=== PATIENT | male | born 1970 | race Caucasian/White ===

== ENCOUNTER 2020-11-10 09:55 | Day surgery (SDC) | payer OTHER ==
[~2020-11-10 09:55] MED LIST: CEFAZOLIN 2 GM/D5W RTU 2 GM/50 ML RTUPB IV PRN; DEXAMETHASONE SOD PHOS INJ 10 MG/1 ML VIAL ONE; FAMOTIDINE INJ/PF 20 MG/2 ML SDV IV ONE; FENTANYL CITRATE INJ/PF 100 MCG/2 ML AMPUL ONE; GLYCOPYRROLATE INJ 0.4 MG/2 ML VIAL ONE; LIDOCAINE 2% INJ-PF (100 MG/5 ML) SYRINGE ONE; MIDAZOLAM 2 MG/2 ML INJ ONE; MORPHINE SULFATE 10 MG/ML INJ ONE; ONDANSETRON HCL INJ/PF 4 MG/2 ML SDV ONE; PROPOFOL INJ 200 MG/20 ML VIAL IV ONE; SUCCINYLCHOLINE CHLORIDE INJ 200 MG/10 ML VIAL ONE
[2020-11-10] MEDS ORDERED: OXYMETAZOLINE HCL 0.05% NASAL SPRAY 15 ML BOTTLE ONE (10:38)
[2020-11-10] MEDS ORDERED: COCAINE HCL 4% TOPICAL SOLN 4 ML ONE (10:38)
[2020-11-10] MEDS: LIDOCAINE 2%/EPINEPHRINE INJ 1.7 ML CARTRIDGE ONE ×2 (11:21→11:55)
[2020-11-10] MEDS ORDERED: EPHEDRINE SULFATE INJ 50 MG/1 ML AMPULE ONE (11:52)
[2020-11-10] MEDS ORDERED: BACITRACIN ZINC OINTMENT 15 GM ONE (11:56)
--- NOTE | 2020-11-10 12:32 | Operative Report ---
Operative Report-[facility] Operative Report: Date: 10 November 2020 History: 49-year-old male presents with a history of nasal dyspnea. Patient had a previous septoplasty. Physical exam revealed a deviated nasal septum, bilateral nasal vestibular stenosis and inferior turbinate hypertrophy. Presents today for a revision septoplasty, repair nasal vestibular stenosis and turbinate reduction Pre-operative diagnosis: 1. Deviated nasal septum 2. Inferior turbinate hypertrophy, bilateral 3. Bilateral nasal vestibular stenosis Post operative diagnosis: same as above. Procedure: 1. Revision nasal septoplasty [CPT: 64349] 2. Inferior turbinate reduction, right side [CPT: 28125] 3 . Inferior turbinate reduction, left side [CPT: 47877] 4. Repair nasal vestibular stenosis, right side (CPT: 04442) 5. Repair nasal vestibular stenosis, left side (CPT: 86005) Surgeon: Bean Ramos MD, [facility], [facility] Anesthia: WALTER Description of the procedure: After receiving informed consent, the patient was brought to the operating room and placed supine on the operating table. After successful induction and intubation by anesthesia, cottonoids soaked with 4% cocaine replaced into each nasal cavity for approximately five minutes. They were removed andthe septum along with the inferior turbinate were injected with 2% Xylocaine with 1:100,000 epinephrine. The cottonoids were replaced. The patient was then prepped and draped in a sterile fashion. The cottonoids where then removed. A number 15 blade was used to make a latoya transfixtion incision on the left side. Next, using a Parada and then a Carola elevator, a mucoperichondrial flap was elevated to the osteocartilaginous junction. Previous surgery had removed most of the perpendicular plate of the ethmoid. The dissection of this flap was difficult secondary to fibrosis from the previous septoplasty. A septal deflection was noted superiorly, anterior and posterior to the osteocartilaginous junction. Maxton-Valentin's were used to remove this deflection. Dissection continued posteriorly and a mucoperiosteal flap was elevated on both sides of a remnant vomer ethmoid spur. This was removed using Regis-Sarmiento. The septum was viewed with the flaps in place and found to be relatively straight. The middle turbinates were visible on both sides. The latoya transfixion incision was closed using 4-0 chromic and a 4-0 plain gut whip stitch was used to secure the septal flaps. Attention was then directed to the nasal valve area on the right, where the [employer] nasal airway remodeling system was used to repair the nasal vestibular stenosis. The handpiece was placed superiorly at the caudal margin of the upper lateral cartilage and the device was activated. This was repeated 2 more times marching inferiorly towards the piriform aperture. A similar procedure was done on the left. Attention was then directed to the inferior turbinates. Inferior turbinate reduction was performed using the [employer] turbinate system. Destruction of submucosal tissue was performed on the left inferior turbinate and then this turbinate was medialized and lateralized using a Sayer elevator. A similar procedure was performed on the right side. Silicon splints coated with bacitracin were placed into each nasal cavity and secured with a 2-0 prolene. Afrin soaked cottonoids were placed into each nasal cavity and secured to each other in front of the nose. The patient was then given back to anesthesia who successfully extubated them. The patient tolerated the procedure well without any complications. Estimated blood loss: 10 mL Fluids: 1000 mL The patient was transferred to the post anesthesia care unit in stable condition with spontaneous respirations.
== END 2020-11-10 13:32 | disposition home or self-care (01) ==
LOC: SC 09:55
PROVIDERS: ATTEND Otolaryngology
DX: J34.3 Hypertrophy of nasal turbinates (principal); J34.2 Deviated nasal septum; J34.89 Other specified disorders of nose and nasal sinuses; G47.30 Sleep apnea, unspecified; R06.83 Snoring; Z87.891 Personal history of nicotine dependence; Z01.812 Encounter for preprocedural laboratory examination; Z20.828 Contact with and (suspected) exposure to other viral communicable diseases
CPT/HCPCS: 87635; 00160; 30520; 30140; 30465; J2250; J3490 ×4; C9046; J3010; J2001; J0330; J2405; J2704; S0028; J1100; J0690; C9803; 160; J2270

== ENCOUNTER 2020-11-29 18:51 | Emergency (ER) | payer OTHER ==
--- NOTE | 2020-11-29 20:16 | ER Document Report ---
ED Medical Screen (RME) - General Stated Complaint: NOSE BLEED Time Seen by Provider: 11/29/20 20:12 Primary Care Provider: ARTHUR DIGGS MD [Primary Care Provider] - Follow up as needed Notes: HPI: 49-year-old male presenting for nosebleed left nostril. Patient had septoplasty November [address] Tracy. Patient states he had been doing well noticed a small trickle of blood from the left nostril earlier today then this evening had significant bleeding from the left nostril. [place] blood going down the back of his throat as well. Had difficulty stopping the bleeding called EMS who packed the nose with TXA. Still feels some blood in the back of the throat PHYSICAL EXAMINATION: There are some small blood clots in the back posterior pharynx. There is bloody packing in the left nostril which will be left in place until patient is in an ER bed where this can be removed and patient more fully examined I have greeted and performed a rapid initial assessment of this patient. A comprehensive ED assessment and evaluation of the patient, analysis of test results and completion of medical decision making process will be conducted by an additional ED providers. Please note that clinical decision making for this patient was made during the 2019 pandemic of novel coronavirus which caused a significant strain on the healthcare system including at this particular facility. Criteria for admission discharge and level of care decisions as well as treatment decisions have necessarily changed - Related Data Allergies/Adverse Reactions: No Known Allergies Allergy (Verified 11/29/20 20:15) Past Medical History - Past Medical History Cardiac Medical History: Denies: Hx Heart Attack, Hx Hypertension Pulmonary Medical History: Denies: Hx Asthma Neurological Medical History: Denies: Hx Cerebrovascular Accident, Hx Seizures GI Medical History: Denies: Hx Hepatitis, Hx Hiatal Hernia, Hx Ulcer Infectious Medical History: Denies: Hx Hepatitis Past Surgical History: Denies: Hx Open Heart Surgery, Hx Pacemaker Physical Exam - Vital signs Vitals: Temp Pulse Resp BP Pulse Ox 98.1 F 81 20 132/90 H 97 11/29/20 19:03 11/29/20 19:03 11/29/20 19:03 11/29/20 19:03 11/29/20 19:03 Course - Vital Signs Vital signs: Temp Pulse Resp BP Pulse Ox 98.1 F 81 20 132/90 H 97 11/29/20 19:03 11/29/20 19:03 11/29/20 19:03 11/29/20 19:03 11/29/20 19:03 Doctor's Discharge - Discharge Referrals: ARTHUR DIGGS MD [Primary Care Provider] - Follow up as needed
[2020-11-29 20:41] LABS: ABSOLUTE BASOPHILS # (AUTO) 0.1 10^3/uL (0.0-0.2); ABSOLUTE EOSINOPHILS # (AUTO) 0.1 10^3/uL (0.0-0.6); ABSOLUTE LYMPHOCYTES (AUTO) 1.5 10^3/uL (0.5-4.7); ABSOLUTE MONOCYTES (AUTO) 0.6 10^3/uL (0.1-1.4); BASOPHILS % (AUTO) 0.6 % (0-2); EOSINOPHILS % (AUTO) 1.5 % (0-6); HEMATOCRIT 38.6 % (37.9-51.0); HEMOGLOBIN 13.6 g/dL (13.5-17.0); LYMPHOCYTES % (AUTO) 16.4 % (13-45); MEAN CORPUSCULAR HEMOGLOBIN 30.2 pg (27.0-33.4); MEAN CORPUSCULAR HGB CONC 35.1 g/dL (32.0-36.0); MEAN CORPUSCULAR VOLUME 86 fl (80-97); MONOCYTES % (AUTO) 6.6 % (3-13); PLATELET COUNT 276 10^3/uL (150-450); RED BLOOD COUNT 4.49 10^6/uL (4.35-5.55); RED CELL DISTRIBUTION WIDTH 12.6 % (11.5-14.0); SEGMENTED NEUTROPHILS % (AUTO) 74.9 % (42-78); TOTAL CELLS COUNTED % (AUTO) 100 %; WHITE BLOOD COUNT 9.4 10^3/uL (4.0-10.5)
[2020-11-29 20:51] LABS: INTERNATIONAL RATION (INR) 0.87; PROTHROMBIN TIME 12.1 SEC (11.4-15.4)
[2020-11-29 20:59] LABS: ALBUMIN 4.2 g/dL (3.5-5.0); ALKALINE PHOSPHATASE 61 U/L (38-126); ASPARTATE AMINO TRANSFERASE 28 U/L (17-59); BILIRUBIN,DIRECT 0.2 mg/dL (0.0-0.4); BILIRUBIN,TOTAL 0.4 mg/dL (0.2-1.3); BLOOD UREA NITROGEN 15 mg/dL (7-20); CALCIUM 9.8 mg/dL (8.4-10.2); CARBON DIOXIDE 28 mmol/L (22-30); CHLORIDE 108 mmol/L (98-107); GLUCOSE 106 mg/dL (75-110); TOTAL PROTEIN 7.1 g/dL (6.3-8.2)
[2020-11-29 21:00] LABS: POTASSIUM 4.4 mmol/L (3.6-5.0)
[2020-11-29 21:01] LABS: ANION GAP 4 (5-19)
[2020-11-29] MEDS ORDERED: TRANEXAMIC ACID INJ/PF 1,000 MG/10 ML SDV IV STA (23:43)
[2020-11-29] MEDS ORDERED: TRANEXAMIC ACID INJ/PF 1,000 MG/10 ML SDV TOP STA (23:44)
--- NOTE | 2020-11-29 23:45 | ER Document Report ---
ED General - General Chief Complaint: Nose Bleed Stated Complaint: NOSE BLEED Time Seen by Provider: 11/29/20 20:12 Primary Care Provider: ARTHUR DIGGS MD [Primary Care Provider] - Follow up as needed - HPI Context: Chief Complaint: [Nosebleed] [This is a 49-year-old male who presents to the emergency department complaining of recurrent left-sided nosebleed. Patient states he had septoplasty done on November 10 for a deviated septum and had been doing well until today when he started as a small trickle of blood from his left nostril which developed into heavier bleeding from the left nostril that also went down the back of his throat. Patient tried to stop the bleeding on his own without success. Patient called EMS, the pack the nose on the left side with some gauze soaked in TXA. Patient states he still feels some blood pooling behind the packing. ] History obtained from [patient] Symptoms began:[Yesterday morning] Onset: [Sudden] Timing: [Sudden] Quality: [Initially minimal] Intensity: [Bleeding became heavier last evening] Location: [Left nostril] Radiation: [Denies] [The pain does not migrate to a new location.] Aggravating factors: [none] Relieving factors: [none] [Denies] SOB [Denies] nausea [Denies] vomiting [Denies] sweats [Denies] fever [Denies] cough [Denies] calf or leg swelling or pain - Related Data Allergies/Adverse Reactions: No Known Allergies Allergy (Verified 11/29/20 20:15) Home Medications: naproxen, buspar, pravastatin, baclofen, trazadone Past Medical History - General Information source: Patient - Social History Smoking Status: Former Smoker Chew tobacco use (# tins/day): No Frequency of alcohol use: Social Drug Abuse: None Family History: Reviewed & Not Pertinent Patient has homicidal ideation: No - Past Medical History Cardiac Medical History: Reports: Hx Hypercholesterolemia Denies: Hx Heart Attack, Hx Hypertension Pulmonary Medical History: Denies: Hx Asthma Neurological Medical History: Denies: Hx Cerebrovascular Accident, Hx Seizures GI Medical History: Denies: Hx Hepatitis, Hx Hiatal Hernia, Hx Ulcer Psychiatric Medical History: Reports: Hx Depression Infectious Medical History: Denies: Hx Hepatitis Past Surgical History: Reports: Hx Nose Surgery - septoplasty x2. Denies: Hx Open Heart Surgery, Hx Pacemaker Review of Systems - Review of Systems Notes: Review of systems as below unless otherwise stated in HPI. CONSTITUTIONAL [No] fever, [No] chills. EYES [No] eye pain. ENT [No] URI symptoms, [No] sore throat, [No] ear pain. Positive epistaxis CARDIOVASCULAR [No] chest pain, [No] palpitations, [No] edema. RESPIRATORY [No] Cough, [No] SOB, [No] wheezing. GASTROINTESTINAL [No] abdominal pain, [No] nausea, [No] Diarrhea, [No] Vomiting, [No] constipation, [No] melena, [No] rectal bleeding. GENITOURINARY [No] dysuria, [No] urinary frequency, [No] hematuria, [No] urinary urgency MUSCULOSKELETAL [No] Back pain. SKIN [No] Rash. NEUROLOGIC [No] Headache, [No] recent seizures, [No] paralysis,[No] parathesias. ENDOCRINE [No] polyuria. HEMO/LYMPATIC [No] easy brusing PSYCHIATRIC [No] depression. Physical Exam - Vital signs Vitals: Temp Pulse Resp BP Pulse Ox 98.1 F 81 20 132/90 H 97 11/29/20 19:03 11/29/20 19:03 11/29/20 19:03 11/29/20 19:03 11/29/20 19:03 - Notes Notes: CONSTITUTIONAL [Vital signs reviewed, Patient appears comfortable, Alert and oriented X 3, Normal stature.] HEAD [Atraumatic, Normocephalic.] EYES [Eyes are normal to inspection, No discharge from eyes, Extraocular muscles intact, Sclera are normal, Conjunctiva are normal.] ENT [External ears normal to inspection, Nose examination significant for a moderate amount of bright red blood in the left nostril along with clot. There is a small amount of bright red blood also trickling out of the left nostril. Even with the patient blowing his nose and using suction to clear the nostril on that side, this MD was unable to find the exact location of the bleeding. No blood is seen in the posterior oropharynx] NECK [Normal ROM, No jugular venous distention, No meningeal signs, ] RESPIRATORY CHEST [Chest is nontender, Breath sounds normal, No respiratory distress.] CARDIOVASCULAR [RRR, No murmurs, Normal S1 S2, No rub, No gallop.] ABDOMEN [Abdomen is nontender, No pulsatile masses, No other masses, Bowel sounds normal, No distension, No peritoneal signs, No hernias.] BACK [There is no CVA Tenderness, There is no tenderness to palpation, Normal inspection.] UPPER EXTREMITY [Inspection normal, No cyanosis, No clubbing, No edema, LOWER EXTREMITY [Inspection normal, No cyanosis, No clubbing, No edema, No calf tenderness, NEURO [No focal motor deficits, No focal sensory deficits, Speech normal.] SKIN [Skin is warm, Skin is dry, Skin is normal color.] PSYCHIATRIC [Normal affect. ] Course - Re-evaluation Re-evalutation: 11/30/20 01:38 Patient has tolerated the Rhino Rocket well and has had no further bleeding. Results of ED MSE, follow-up with ENT discussed with patient and patient's . All questions were answered prior to discharge. Emergency signs and symptoms, reasons to return to the emergency department discussed with patient patient's significant other. - Vital Signs Vital signs: Temp Pulse Resp BP Pulse Ox 98.1 F 81 20 132/90 H 97 11/29/20 19:03 11/29/20 19:03 11/29/20 19:03 11/29/20 19:03 11/29/20 19:03 - Laboratory Results Result Diagrams: 11/29/20 20:25 11/29/20 20:25 Laboratory Results Interpreted: 11/29/20 20:25 Chloride 108 H Anion Gap 4 L Critical Laboratory Results Reviewed: No Critical Results Attending or Supervising Physician who Reviewed Labs: REDD BENSON IV - Radiology Results Critical Radiology Results Reviewed: No Critical Results Attending or Supervising Physician who Reviewed Radiology: REDD BENSON IV Procedures - Nosebleed Procedure Left Time completed: 00:19 Location: Anterior - Patient states he thinks he saw a area of bleeding that is closer to the front of the nose earlier but the exact area of bleeding is not located on this MDs exam Supplies used: Rhinorocket, Other - TXA Notes: A 7.5 cm anterior posterior Rhino Rocket with airway was inserted into the patient's left nasal passage after being saturated with TXA. Patient has been watched in the emergency department for over an hour without additional bleeding. Patient tolerated the procedure well. Discharge - Discharge Clinical Impression: Acute anterior epistaxis Condition: Stable Disposition: HOME, SELF-CARE Additional Instructions: Return to the Emergency Department without delay if any worse. HOME CARE INSTRUCTIONS & INFORMATION: Thank you for choosing us for your medical needs. We hope you're satisfied with the care you received. After you leave, you must properly care for your problem and, at the same time, observe its progress. Any condition can change. Some illnesses can change rapidly over hours or days. If your condition worsens, return to the Emergency Department or see your physician promptly. ABOUT YOUR X-RAYS AND EKG'S: If you had an EKG or X-rays taken, they have been read by the Emergency Physician. The X-rays and EKG's will also be read by a Radiologist or Map Editor within 24 hours. If discrepancies are noted, you will be notified by telephone. Please be certain the ED has a correct telephone number & address where you can be reached. Also, realize that some fractures or abnormalities do not show up on initial X-rays. If your symptoms continue, see your physician. ABOUT YOUR LABORATORY TEST: If you had laboratory tests, the results have been reviewed by the Emergency Physician. Some test results (for example cultures) may not be available for several days. You will be contacted if any test result shows you need additional treatment. Please be certain the ED has a correct telephone number and address where you can be reached. ABOUT YOUR MEDICATIONS: You will receive instructions on how to take your medicine on the prescription label you receive. Additional information may be provided by the Pharmacy. If you have questions afterwards, call the ED for clarification or further instructions. Some prescribed medications may cause drowsiness. Do not perform tasks such as driving a car or operating machinery without consulting your Pharmacist. If you feel you need a refill of pain medication, your condition will need re-evaluation. Please do not call for a refill of any medication. ABOUT YOUR SIGNATURE: Signature of this document acknowledges to followin. Understanding that you received emergency treatment and that you may be released before al medical problems are known or treated. Please be certain the ED has a correct phone number & address where you can be reached. 2. Acknowledgement that you will arrange for follow-up care as recommended. 3. Authorization for the Emergency Physician to provide information to your follow-up Physician in order to maximize your care. AT ANY TIME, IF YOUR SYMPTOMS CHANGE SIGNIFICANTLY OR WORSEN OR YOU DEVELOP NEW SYMPTOMS, RETURN TO THE EMERGENCY DEPARTMENT IMMEDIATELY FOR RE-EVALUATION. OUR GOAL IS TO PROVIDE EXCELLENT MEDICAL CARE! WE HOPE THAT WE HAVE MET YOUR EXPECTATIONS DURING YOUR EMERGENCY DEPARTMENT VISIT AND THAT YOU FEEL YOU HAVE RECEIVED EXCELLENT CARE! Nosebleed Instructions There is a significant chance of re-bleeding following a nosebleed. Proper care makes this less likely. Do not touch the nose for 24 hours. Do not blow the nose forcefully for one week. After 24 hours, gently apply Vaseline ointment to both nostrils with the tip of a finger, three times a day, for one week. It's normal to have a bloody mucous discharge for a few days. If active bleeding recurs, blow all the blood from the nose, then sit quietly and pinch the nose as firmly as possible for 10 minutes. If this does not stop the bleeding, return for further care. If packing was left in the nose and it starts to come out of the nostril, either tuck it back in or cut it off. Don't pull it out. Return for recheck and removal of the packing when instructed. Persons with frequent nosebleeds should avoid aspirin (unless prescribed for another reason). Humidity in the bedroom, and petroleum jelly applied to the nostrils at night may help. Referrals: PIEDAD TRACY DO [ASSOCIATE] - 11/30/[address] ([address] Tracy's office today to arrange follow-up appointment to remove Rhino Rocket.)
[2020-11-30] MEDS ORDERED: HYDROCODONE/ACETAMINOPHEN 5-325 MG TABLET PO ONE (00:54)
[2020-11-30] MEDS ORDERED: HYDROCODONE/ACETAMINOPHEN 5-325 MG (6 TAB/ER DISP) PO PRN (01:42)
[2020-11-30] MEDS ORDERED: ONDANSETRON ODT 4 MG TAB (6 TAB/ER DISP) PO PRN (01:43)
[2020-11-30 02:13] VITALS: BP 122/70
== END 2020-11-30 02:13 | disposition home or self-care (01) ==
LOC: ER 18:51
DX: R04.0 Epistaxis (principal); E78.00 Pure hypercholesterolemia, unspecified; Z79.1 Long term (current) use of non-steroidal anti-inflammatories (NSAID); F32.9 Major depressive disorder, single episode, unspecified; Z79.899 Other long term (current) drug therapy; Z98.890 Other specified postprocedural states; Z87.891 Personal history of nicotine dependence
CPT/HCPCS: 99284; 96374; 36415; 85025; 85610; 80053; 30901; J3490